=== PATIENT | female | born 1985 | race Caucasian/White ===

== ENCOUNTER 2017-05-19 17:28 | Emergency (ER) | payer MEDICAID ==
[~2017-05-19] VITALS: Ht 170.2 cm; Wt 95.3 kg
[2017-05-19 17:32] VITALS: BP_SYST 146
[2017-05-19] MEDS ORDERED: KETOROLAC TROMETHAMINE 30 MG VIAL IM ONE (20:30)
[2017-05-19] MEDS ORDERED: OXYCODONE/ACETAMINOPHEN *10*mg/325 mg TABLET PO ONE (20:30)
[2017-05-19 22:23] VITALS: BP_SYST 149
== END 2017-05-19 22:23 | disposition home or self-care (01) ==
LOC: SED 17:28
DX: F07.81 Postconcussional syndrome (principal)
CPT/HCPCS: 96372; 99283; J1885